=== PATIENT | female | born 1970 | race Caucasian/White ===

== ENCOUNTER 2017-04-13 10:39 | Emergency (ER) | payer SELFPAY | END 2017-04-13 13:51 | disposition left against medical advice (07) | LOC: FTE 10:39 | DX: Z53.21 Procedure and treatment not carried out due to patient leaving prior to being seen by health care provider (principal) ==

== ENCOUNTER 2017-05-25 19:51 | Emergency (ER) | payer MEDICAID ==
[2017-05-25 22:50] LABS: URINE BLOOD (Dip) POC 2+ (NEGATIVE); URINE GLUCOSE (Dip) POC Negative (NEGATIVE); URINE KETONES (Dip) POC Negative (NEGATIVE); URINE LEUKOCYTE EST (Dip) POC Negative (NEGATIVE); URINE NITRITE (Dip) POC Negative (NEGATIVE); URINE TOTAL PROTEIN POC Trace (NEGATIVE)
[2017-05-25 22:50] LABS: URINE PH (Dip) POC 5.5 (5.0-8.5)
[2017-05-25] MEDS: AZITHROMYCIN 250 MG TAB PO (22:51)
[2017-05-25] MEDS: CEFTRIAXONE 250 MG INJ IM (22:51)
== END 2017-05-25 23:20 | disposition home or self-care (01) ==
LOC: FTE 19:51
DX: R30.0 Dysuria (principal); I10 Essential (primary) hypertension; F17.210 Nicotine dependence, cigarettes, uncomplicated; Z20.2 Contact with and (suspected) exposure to infections with a predominantly sexual mode of transmission
CPT/HCPCS: 81003; 87591; 96372; 99284-25

== ENCOUNTER 2017-06-21 20:31 | Emergency (ER) | payer MEDICAID ==
[2017-06-21 22:07] LABS: URINE BLOOD (Dip) POC 1+ (NEGATIVE); URINE GLUCOSE (Dip) POC Negative (NEGATIVE); URINE KETONES (Dip) POC Negative (NEGATIVE); URINE LEUKOCYTE EST (Dip) POC Trace (NEGATIVE); URINE NITRITE (Dip) POC Negative (NEGATIVE); URINE TOTAL PROTEIN POC Negative (NEGATIVE)
[2017-06-21] MEDS: HYDROCODONE/APAP (5/325) TAB PO (22:28)
[2017-06-21] MEDS: ACETAMINOPHEN 325 MG TAB PO (22:36)
== END 2017-06-21 23:40 | disposition home or self-care (01) ==
LOC: FTE 20:31
DX: N39.0 Urinary tract infection, site not specified (principal); D25.9 Leiomyoma of uterus, unspecified; I10 Essential (primary) hypertension; F17.210 Nicotine dependence, cigarettes, uncomplicated
CPT/HCPCS: 81003; 99284

== ENCOUNTER 2017-09-20 02:03 | Emergency (ER) | payer MEDICAID ==
[2017-09-20 03:32] LABS: ADD MAN DIFF? NO
[2017-09-20 03:33] LABS: WHITE BLOOD COUNT 7.1 10^3/ul (4.8-10.8)
[2017-09-20 03:33] LABS: BASOPHIL # 0.1 10^3/ul (0.0-0.1); BASOPHILS % 0.7 % (0.0-2.0); EOSINOPHILS # 0.2 10^3/ul (0.0-0.5); EOSINOPHILS % 2.7 % (0.0-7.0); HEMOGLOBIN 12.5 g/dl (12.0-16.0); LYMPHOCYTES # 2.5 10^3/ul (0.8-2.9); LYMPHOCYTES % 35.3 % (15.0-51.0); MEAN CORPUSCULAR HEMOGLOBIN 31.4 pg (29.0-33.0); MEAN CORPUSCULAR HGB CONC 34.7 g/dl (32.0-37.0); MEAN CORPUSCULAR VOLUME 90.5 fl (82.0-101.0); MONOCYTE # 0.6 10^3/ul (0.3-0.9); MONOCYTES % 8.8 % (0.0-11.0); NEUTROPHIL # 3.7 10^3/ul (1.6-7.5); NEUTROPHILS % 52.2 % (39.0-77.0); PLATELET COUNT 347 10^3/UL (140-415); RED BLOOD COUNT 3.98 10^6/ul (4.20-5.40); RED CELL DISTRIBUTION WIDTH 12.8 % (11.5-14.5)
== END 2017-09-20 05:28 | disposition home or self-care (01) ==
LOC: FTE 02:03
DX: N93.9 Abnormal uterine and vaginal bleeding, unspecified (principal); D25.9 Leiomyoma of uterus, unspecified; I10 Essential (primary) hypertension; F17.210 Nicotine dependence, cigarettes, uncomplicated; R10.2 Pelvic and perineal pain
CPT/HCPCS: 36415; 76830; 76856; 81025; 85025; 99284-25

== ENCOUNTER 2017-10-29 15:30 | Emergency (ER) | payer MEDICAID ==
[2017-10-29] MEDS: KETOROLAC 30 MG INJ IM (18:03)
== END 2017-10-29 19:44 | disposition home or self-care (01) ==
LOC: FTE 15:30
DX: M25.521 Pain in right elbow (principal); I10 Essential (primary) hypertension; F17.210 Nicotine dependence, cigarettes, uncomplicated
CPT/HCPCS: 73080; 73080-RT; 73610-RT; 81025; 96372; 99284-25

== ENCOUNTER 2018-09-28 00:04 | Emergency (ER) | payer SELFPAY, MEDICAID ==
[2018-09-28] MEDS: DIPHENHYDRAMINE 25 MG CAP PO (03:19)
[2018-09-28] MEDS: IBUPROFEN 800 MG TAB PO (03:20)
[2018-09-28] MEDS: FAMOTIDINE 20 MG TAB PO (03:20)
[2018-09-28] MEDS: DEXAMETHASONE 10 MG/ML 1 ML INJ IM (03:21)
[2018-09-28] MEDS: CEFTRIAXONE 1 GM INJ IM (03:21)
== END 2018-09-28 03:33 | disposition home or self-care (01) ==
LOC: FTE 00:04
DX: S80.861A Insect bite (nonvenomous), right lower leg, initial encounter (principal); I10 Essential (primary) hypertension; L03.115 Cellulitis of right lower limb; W57.XXXA Bitten or stung by nonvenomous insect and other nonvenomous arthropods, initial encounter; Y92.007 Garden or yard of unspecified non-institutional (private) residence as the place of occurrence of the external cause
CPT/HCPCS: 96372; 99284-25